=== PATIENT | female | born 1995 | race Two or more races ===

== ENCOUNTER 2017-06-27 11:18 | Observation (INO) | payer MEDICAID ==
[2017-06-27] MEDS ORDERED: PREN-145 OR (12:13)
== END 2017-06-27 12:10 | disposition home or self-care (01) | DRG 566 ==
LOC: LDRP 11:18
PROVIDERS: ADMIT Specialist; ATTEND Specialist
DX: O24.419 Gestational diabetes mellitus in pregnancy, unspecified control (principal); Z3A.34 34 weeks gestation of pregnancy
CPT/HCPCS: 59025; 76818; 81002; 82962; G0378

== ENCOUNTER 2017-07-04 09:40 | Observation (INO) | payer MEDICAID ==
[~2017-07-04 09:40] MED LIST: PREN-145 OR
== END 2017-07-04 12:15 | disposition home or self-care (01) | DRG 566 ==
LOC: LDRP 09:40
PROVIDERS: ADMIT Specialist; ATTEND Specialist
DX: O24.419 Gestational diabetes mellitus in pregnancy, unspecified control (principal); Z3A.35 35 weeks gestation of pregnancy
CPT/HCPCS: 59025; 76818; 81002; G0378

== ENCOUNTER 2017-07-07 13:50 | Observation (INO) | payer MEDICAID | END 2017-07-07 15:05 | disposition home or self-care (01) | DRG 566 | LOC: LDRP 13:50 | PROVIDERS: ADMIT Specialist; ATTEND Specialist | DX: O24.419 Gestational diabetes mellitus in pregnancy, unspecified control (principal); Z3A.36 36 weeks gestation of pregnancy | CPT/HCPCS: 59025; 76818; 81002; G0378 ==

== ENCOUNTER 2017-07-11 09:53 | Observation (INO) | payer MEDICAID | END 2017-07-11 11:45 | disposition home or self-care (01) | DRG 566 | LOC: LDRP 09:53 | PROVIDERS: ADMIT Specialist; ATTEND Specialist | DX: O24.419 Gestational diabetes mellitus in pregnancy, unspecified control (principal); Z3A.36 36 weeks gestation of pregnancy | CPT/HCPCS: 59025; 76818; 81002; 82948; 82962; G0378 ==

== ENCOUNTER 2017-07-14 12:10 | Observation (INO) | payer MEDICAID ==
[2017-07-14] MEDS ORDERED: FERR-20 PO (12:33)
== END 2017-07-14 13:05 | disposition home or self-care (01) | DRG 566 ==
LOC: LDRP 12:10
PROVIDERS: ADMIT Obstetrics & Gynecology; ATTEND Obstetrics & Gynecology
DX: O24.410 Gestational diabetes mellitus in pregnancy, diet controlled (principal); Z3A.37 37 weeks gestation of pregnancy
CPT/HCPCS: 59025; 76818; 81002; G0378

== ENCOUNTER 2017-07-21 08:55 | Observation (INO) | payer MEDICAID ==
[~2017-07-21 08:55] MED LIST changes: +FERR-20 PO
== END 2017-07-21 10:10 | disposition home or self-care (01) | DRG 566 ==
LOC: LDRP 08:55
PROVIDERS: ADMIT Specialist; ATTEND Specialist
DX: O24.419 Gestational diabetes mellitus in pregnancy, unspecified control (principal); Z3A.38 38 weeks gestation of pregnancy
CPT/HCPCS: 76818; G0378; 59025; 81002

== ENCOUNTER 2017-07-25 09:57 | Observation (INO) | payer MEDICAID | END 2017-07-25 11:40 | disposition home or self-care (01) | DRG 566 | LOC: LDRP 09:57 | PROVIDERS: ADMIT Specialist; ATTEND Specialist | DX: O24.419 Gestational diabetes mellitus in pregnancy, unspecified control (principal); Z3A.38 38 weeks gestation of pregnancy | CPT/HCPCS: 59025; 76818; 81002; 82962; G0378 ==

== ENCOUNTER 2017-07-25 16:05 | Inpatient (IN) | payer MEDICAID ==
[~2017-07-25] VITALS: Ht 188 cm; Wt 125.6 kg
[2017-07-25] MEDS ORDERED: LACTATED RINGER'S 1,000 ML IV SCH (16:18)
[2017-07-25 17:46] LABS: Basophils # (auto) 0 uL; Basophils % (auto) 0.3 % (0.0-2.0); Eosinophils # (auto) 0.1 uL; Eosinophils % (auto) 1.1 % (0.0-7.0); Hematocrit 32.7 % (36.0-46.0); Hemoglobin 10.9 g/dL (12.2-16.2); Lymphocytes # (auto) 1.5 uL; Lymphocytes % (auto) 15.9 % (10.0-50.0); Mean Corpuscular Hemoglobin 27.8 pg (28.0-32.0); Mean Corpuscular Hgb Conc. 33.4 g/dL (32.0-36.0); Mean Corpuscular Volume 83.2 fL (80.0-100.0); Monocytes # (auto) 0.5 uL; Monocytes % (auto) 5.4 % (0.0-12.0); Neutrophils # (auto) 7.3 uL; Neutrophils % (auto) 77.3 % (37.0-80.0); Nucleated Red Blood Cells % 0.1 %; Platelet Count (auto) 266 10^3/uL (140-450); Red Blood Cells 3.94 10^6/uL (4.0-5.20); Red Cell Distribution Width 14.1 % (11.8-14.3); White Blood Cell 9.5 10^3/uL (4.4-10.8)
[2017-07-25 18:00] LABS: INR 0.89 (0.9-1.15); Partial Thromboplastin Time 27.6 sec (22.64-33.71); Prothrombin Time 9.7 sec (9.37-12.3)
[2017-07-25 18:02] LABS: Albumin 2.4 g/dL (3.4-5.0); BUN/Creatinine Ratio 14.5; Bilirubin, Total 0.3 mg/dL (0.2-1.0); Calcium 8.8 mg/dL (8.5-10.1); Potassium 3.7 mmol/L (3.5-5.1); Uric Acid 5.4 mg/dL (2.6-6.0)
[2017-07-25 18:49] LABS: Urine Bacteria NONE SEEN /hpf (None Seen); Urine Blood TRACE /uL (Negative); Urine Mucus FEW (None Seen); Urine Specific Gravity 1.026 (1.001-1.035); Urine WBC 17 /hpf (0 - 5)
[2017-07-25] MEDS ORDERED: fentaNYL CITRATE 100 MCG/2 ML VL IV ONE (20:45)
[2017-07-25] MEDS ORDERED: fentaNYL W ROPIVACAINE 150 ML EPI SCH (20:45)
[2017-07-25] MEDS ORDERED: LIDOCAINE HCL 2 %PF INJ 10ML AMP IJ ONE (20:45)
[2017-07-25] MEDS ORDERED: ePHEDrine SULFATE 50 MG/ML AMP IV ONE (20:45)
[2017-07-25] MEDS ORDERED: NALOXONE HCL 0.4 MG/ML VIAL IV ONE (20:45)
[2017-07-25] MEDS ORDERED: LACT. RINGERS/OXYTOCIN 20UNITS 1,000 ML IV ONE (21:00)
[2017-07-25] MEDS ORDERED: LIDOCAINE 2%HCL (LOCAL ANESTH.) INJ 20ML MDV ONE (21:01)
[2017-07-26] MEDS ORDERED: LACT. RINGERS/OXYTOCIN 20UNITS 0 ML IV ONE (02:48)
[2017-07-26] MEDS ORDERED: OXYTOCIN 10UNIT/ML 1ML VIAL ONE (02:48)
[2017-07-26] MEDS ORDERED: PROMETHAZINE HCL 25 MG/ML 1ML IV ONE (04:00)
[2017-07-26] MEDS ORDERED: PROMETHAZINE HCL 25 MG/ML 1ML ONE (04:00)
[2017-07-26] MEDS ORDERED: WITCH HAZEL-GLYCERIN PAD TOP ONE (06:15)
[2017-07-26] MEDS ORDERED: PHISODERM TOP SOLN 240ML BTL TOP ONE (06:15)
[2017-07-26] MEDS ORDERED: DERMOPLAST 60ML BOTTLE TOP ONE (06:15)
[2017-07-26] MEDS ORDERED: ACETAMINOPHEN 325 MG TAB PO PRN (06:45)
[2017-07-26] MEDS: LACT. RINGERS/OXYTOCIN 20UNITS 1,000 ML IV SCH ×2 (07:45→14:25)
[2017-07-26] MEDS ORDERED: INFLUENZA QUAD 2017-2018 0.5 ML SYRG IM ONE (09:30)
[2017-07-26 12:15] VITALS: BP 115/74
[2017-07-26] MEDS: IBUPROFEN 600 MG TAB PO PRN ×2 (13:34→16:10)
[2017-07-26 16:00] VITALS: BP 117/59
[2017-07-26 19:15] VITALS: BP 129/66
[2017-07-26 23:00] VITALS: BP 125/74
[2017-07-27 04:30] VITALS: BP 120/67
[2017-07-27] MEDS ORDERED: TETANUS-DIPTH-ACEL PERTUSSIS 0.5ML SYRG IM ONE (07:15)
[2017-07-27 08:12] VITALS: BP 133/77
== END 2017-07-27 10:55 | disposition home or self-care (01) | DRG 560 ==
LOC: LDRP 16:05
PROVIDERS: ADMIT Specialist; ATTEND Specialist
PROC: 10E0XZZ Delivery of Products of Conception, External Approach (ICD-10-PCS; principal; 2017-07-26)
PROC: 3E0R3BZ Introduction of Anesthetic Agent into Spinal Canal, Percutaneous Approach (ICD-10-PCS; 2017-07-26)
PROC: 00HU33Z Insertion of Infusion Device into Spinal Canal, Percutaneous Approach (ICD-10-PCS; 2017-07-26)
PROC: 10907ZC Drainage of Amniotic Fluid, Therapeutic from Products of Conception, Via Natural or Artificial Opening (ICD-10-PCS; 2017-07-26)
DX: O24.429 Gestational diabetes mellitus in childbirth, unspecified control (principal); O36.63X0 Maternal care for excessive fetal growth, third trimester, not applicable or unspecified; O76 Abnormality in fetal heart rate and rhythm complicating labor and delivery; Z37.0 Single live birth; Z3A.38 38 weeks gestation of pregnancy; Z23 Encounter for immunization
CPT/HCPCS: 36415; 51702; 59025; 59409; 62282; 80053; 81001; 82948; 82962; 84550; 85025; 85610; 85730; 86850; 86900; 86901; 90715; 94762; 96361; 96365; 96366; 96372; J2590; J3010

== ENCOUNTER → 2018-04-30 | Outpatient (CLI) | payer MEDICAID ==
[2018-04-30 09:51] LABS: Basophils # (auto) 0 uL; Basophils % (auto) 0.3 % (0.0-2.0); Eosinophils # (auto) 0.1 uL; Eosinophils % (auto) 1.3 % (0.0-7.0); Hematocrit 34.5 % (36.0-46.0); Hemoglobin 11.4 g/dL (12.2-16.2); Lymphocytes # (auto) 1.7 uL; Lymphocytes % (auto) 17.9 % (10.0-50.0); Mean Corpuscular Hemoglobin 28.1 pg (28.0-32.0); Mean Corpuscular Volume 85.3 fL (80.0-100.0); Monocytes # (auto) 0.4 uL; Monocytes % (auto) 4.3 % (0.0-12.0); Neutrophils # (auto) 7.2 uL; Neutrophils % (auto) 76.2 % (37.0-80.0); Platelet Count (auto) 258 10^3/uL (140-450); Red Blood Cells 4.05 10^6/uL (4.0-5.20); Red Cell Distribution Width 13.1 % (11.8-14.3); White Blood Cell 9.5 10^3/uL (4.4-10.8)
[2018-04-30 09:55] LABS: Urine Blood TRACE /uL (Negative)
[2018-04-30 10:50] LABS: RUBELLA Positive
== END | disposition home or self-care (01) ==
LOC: LAB 09:19
PROVIDERS: ATTEND Specialist
DX: O99.810 Abnormal glucose complicating pregnancy (principal); O98.519 Other viral diseases complicating pregnancy, unspecified trimester; B00.9 Herpesviral infection, unspecified; Z20.2 Contact with and (suspected) exposure to infections with a predominantly sexual mode of transmission; Z3A.00 Weeks of gestation of pregnancy not specified
CPT/HCPCS: 36415; 81003; 82951; 83036; 85025; 86703; 86762; 86850; 86900; 86901; 87086; 87340

== ENCOUNTER → 2018-05-14 | Outpatient (CLI) | payer MEDICAID | END | disposition home or self-care (01) | LOC: LAB 13:26 | PROVIDERS: ATTEND Obstetrics & Gynecology | DX: N39.0 Urinary tract infection, site not specified (principal) | CPT/HCPCS: 87086 ==

== ENCOUNTER 2018-08-04 07:30 | Inpatient (IN) | payer MEDICAID | END 2018-08-08 11:00 | disposition home or self-care (01) | LOC: LDRP 07:30 | PROC: 10D00Z1 Extraction of Products of Conception, Low, Open Approach (ICD-10-PCS; principal; 2018-08-05 02:30) | DX: O69.1XX0 Labor and delivery complicated by cord around neck, with compression, not applicable or unspecified (principal); O76 Abnormality in fetal heart rate and rhythm complicating labor and delivery; Z3A.40 40 weeks gestation of pregnancy; Z37.0 Single live birth; Z30.2 Encounter for sterilization ==